=== PATIENT | female | born 1960 | race Caucasian/White ===

== ENCOUNTER 2019-01-10 11:46 | Outpatient (CLI) | payer OTHER ==
[2018-07-01 23:15] VITALS: BP 157/77
--- NOTE | 2019-01-10 17:37 | Diagnostic Imaging Report ---
PATIENT MR#: [id number] PATIENT PATIENT NAME: AGNES VALENCIA DATE OF : 1960 REFERRING PHYSICIAN: Scott Arango EXAM DATE: 01/10/2019 ACCESSION NUMBER: [id number] EXAM DESCRIPTION: FINGER 2 VIEWS OR MORE CLINICAL HISTORY: PAIN OF RT THUMB, PAIN IN RT 1ST DIGIT SINCE FALL IN JUNE 2018 COMPARISON: No study for comparison is available at the time of interpretation. TECHNIQUE: DX right thumb, 3 views Osseous structures: The osseous structures are normal with no evidence of fracture or dislocation. Th ere is no osseous lesion or periosteal reaction. Joint spaces: The bones are well aligned. No articular surface abnormality is noted. Soft tissues: There is normal appearance of the soft tissues with no radiopaque foreign body seen. IMPRESSION: Normal right thumb radiographs. Read by: Dr. Damian Montes Transcribed by: Damian Montes Transcribed Date: 01/10/2019 5:36:57 PM Electronically signed by: Dr. Damian Montes Date signed: 01/10/2019 5:36:57 PM
== END 2019-01-10 11:56 ==
LOC: RAD 11:46
PROVIDERS: ATTEND Family Medicine
DX: M79.644 Pain in right finger(s) (principal)
CPT/HCPCS: 73140